=== PATIENT | female | born 1955 | race Native Hawaiian/Other Pacific Islander ===

== ENCOUNTER → 2016-08-06 | Outpatient (CLI) | payer BC ==
[~2016-08-06] MED LIST: IOHEXOL 300 MG/ML 75ml INJECTION ONE; NORMAL SALINE 100 ML ONE; SALINE FLUSH 10ml SYRINGE ONE
[2016-08-06 09:29] LABS: ANION GAP 9 MEQ/L (5-15); BUN/CREATININE RATIO 23 RATIO (6-26); CALCIUM 9.2 MG/DL (8.4-10.2); CHLORIDE 109 MEQ/L (98-107); CO2 - CARBON DIOXIDE 27 MEQ/L (22-30); CREATININE 0.8 MG/DL (0.7-1.2); GLOMERULAR FILTRATION RATE 72; GLUCOSE 96 MG/DL (65-110); SODIUM 145 MEQ/L (134-144)
--- NOTE | 2016-08-06 10:16 | DI ---
Indication: ITS.REASON: N28.1 SIMPLE RENAL CYST PROCEDURE: CT ABD/PELVIS W/CONTRAST ONLY: Encounter: Subsequent Comparison: CT abdomen/pelvis dated September 23, 2015 and September 09, 2015 Technique: Axial CT images were performed through the abdomen and pelvis after the administration of intravenous contrast. Coronal and sagittal two-dimensional reformats. Automated Exposure Control and Iterative Reconstruction dose reducing techniques were utilized. Contrast: Omnipaque 300 67 mL Findings: Small hiatal hernia with a stable 1 cm submucosal lesion at the GE junction. The lung bases are grossly clear. The liver appears normal. The spleen is stable with an accessory splenule. The pancreas and adrenal glands are within normal limits. The right kidney is stable with a small renal cyst. The prior inflammation and exophytic cystic lesion arising from the anterior aspect of the left kidney has resolved in the interval. No abdominal or pelvic lymphadenopathy. Calcified uterine fibroid. Bladder is grossly normal. No free fluid. No bowel obstruction. Bone windows are stable. Impression: 1. Interval resolution of the inflammatory process involving the anterior aspect of the left kidney consistent with a resolved pyelonephritis and intrarenal abscess. 2. Stable likely benign submucosal lesion at the GE junction could be due to the patient's prior surgery or represent a benign tumor. .
== END ==
LOC: IMA 08:55
PROVIDERS: ATTEND Family Medicine
DX: N28.1 Cyst of kidney, acquired (principal)
CPT/HCPCS: 36415; 74177; 80048; J7050; Q9967